=== PATIENT | female | born 1995 | race African-American/Black ===

== ENCOUNTER 2023-05-05 08:00 | Outpatient (CLI) | payer OTHER ==
[2023-05-05 16:45] LABS: BILIRUBIN,URINE NEGATIVE (NEGATIVE); GLUCOSE, URINE (UA) NEGATIVE (NEGATIVE); KETONES,URINE (UA) NEGATIVE (NEGATIVE); LEUKOCYTE ESTERASE, URINE SMALL (NEGATIVE); NITRITE,URINE NEGATIVE (NEGATIVE); OCCULT BLOOD,URINE NEGATIVE (NEGATIVE); PROTEIN,URINE NEGATIVE (NEGATIVE); UROBILINOGEN,URINE 0.2 (NORMAL) E.U./dL (NORMAL)
[2023-05-05 16:46] LABS: CLARITY,URINE CLOUDY (CLEAR)
[2023-05-05 17:11] LABS: AMORPHOUS SEDIMENT,UR Marked /LPF; BACTERIA,URINE Rare /HPF (None Seen); RBC,URINE None Seen /HPF (0-5); SQUAMOUS EPITHELIAL CELL,UR MANY Squamous (<= Few); WBC,URINE 0-3 /HPF (0-5)
== END 2023-05-05 23:59 | disposition home or self-care (01) ==
LOC: LAB.WC 08:00
PROVIDERS: ATTEND Nurse Practitioner
DX: Z34.90 Encounter for supervision of normal pregnancy, unspecified, unspecified trimester (principal)
CPT/HCPCS: 81001; 87086

== ENCOUNTER 2023-10-24 04:58 | Outpatient (CLI) | payer OTHER ==
[2023-10-24 05:24] VITALS: BP 112/86
[2023-10-24 05:48] LABS: BILIRUBIN,URINE NEGATIVE (NEGATIVE); GLUCOSE, URINE (UA) NEGATIVE (NEGATIVE); KETONES,URINE (UA) NEGATIVE (NEGATIVE); LEUKOCYTE ESTERASE, URINE SMALL (NEGATIVE); NITRITE,URINE NEGATIVE (NEGATIVE); OCCULT BLOOD,URINE SMALL (NEGATIVE); PH,URINE 7.5 PH (5.0-7.5); PROTEIN,URINE NEGATIVE (NEGATIVE); UROBILINOGEN,URINE 0.2 (NORMAL) E.U./dL (NORMAL)
[2023-10-24 06:24] LABS: AMORPHOUS SEDIMENT,UR Moderate /LPF; BACTERIA,URINE Few /HPF (None Seen); CLARITY,URINE HAZY (CLEAR); RBC,URINE 0-5 /HPF (0-5); SQUAMOUS EPITHELIAL CELL,UR RARE Squamous (<= Few); WBC,URINE 0-3 /HPF (0-5)
--- NOTE | 2023-10-24 06:49 | PROVIDER PROGRESS NOTE ---
- HPI Chief Complaint: Hyperemesis Current : Current EDU 11/27/23 Gestation 35 Weeks and 1 Days 1 Para 0 Vital Signs Temperature 98.1 F 10/24/23 05:12 Heart Rate 94 10/24/23 05:12 Respiratory Rate 17 10/24/23 05:12 Blood Pressure 112/86 H 10/24/23 05:12 - Procedures OB Procedure Performed: NST Diagnosis/Indication for NST: Decreased movement NST Procedure: NST Procedure Start Date 10/24/23 Start Time 05:10 Stop Time 05:40 Vibroacoustic Stimulation Used No Patient States Movement Yes - Plan Plan: Patient is a 27-year-old G1, P0 at 35 weeks 1 day gestation presenting today with nausea and vomiting which led to an episode of bloody emesis. This is never happened before. This was during 1 episode with retching several times. She noted specks of blood in the vomit, the blood was not throughout the emesis. She has had hyperemesis this and has continued to vomit throughout. She takes ondansetron and metoclopramide regularly. Last dose was around 10 PM. She does say she has vomiting usually early in the morning, often waking up from sleep with the taste of vomit in her mouth. Vomits once to twice per day. She also has heartburn for which she takes famotidine twice daily and tums in addition. After vomiting, she did notice some abdominal muscular pain in her epigastric area although superficial. She has good movement. She said there is a 30-minute period will be removed less than normal, but overall is reassuring. Has been moving since arrival on L&D. Denies leaking, vaginal bleeding, contractions. No dysuria. No diarrhea, fever, chills. No sick contacts. Physical Exam Constitutional: alert, no acute distress, well hydrated, well developed, well nourished, appropriate dress. Appears very relaxed and unconcerned. Cardiovascular: Regular rate and rhythm. Respiratory: no respiratory distress. Abdomen: nondistended, nontender, no guarding. Pain not reproducible on palpation. Psych: affect and mood appropriate, normal interaction, good eye contact. FHT: 145 beats per baseline, moderate variability, accelerations present, no decelerations. [place]: 2 to 5 minutes SVE: Declined 27-year-old G1, P0 at 35 weeks gestation with nausea and vomiting of 1. Nausea and vomiting of -One episode of blood specks in vomit, likely not a huge concern. Getting nausea and vomiting under better control would be ideal, although less likely given her history of vomiting throughout . She is currently stable an calm. Vitals normal. -Can continue to try scheduling antiemetics at different times. -Advised to get GERD under better control as this may be worsening nausea and vomiting as well as being irritating by itself. -Discussed warning signs of increasing pain, frequency of vomiting. Discussed that specks of blood are less worrisome than large amounts of blood or completely saturated emesis. If she has more episodes of blood, should be reevaluated and return to emergency room if becomes large-volume blood. 2. 35 weeks gestation -Has appointment on Friday with her primary OB provider. 3. GERD -Consider switching to omeprazole if famotidine not working. May help with her nighttime vomiting. 4. Hematuria -Asymptomatic. -UA performed with culture indicated. Will follow-up by phone with culture results. 5. Contractions -Declined cervical exam as she is not feeling contractions 6. Decreased movement -Short episode of decreased movement of 30 minutes is not worrisome. Regardless she had a reactive NST that is very reassuring.
== END 2023-10-24 06:40 | disposition home or self-care (01) ==
LOC: WFO 04:58 → FBP 05:01 → WFO 06:40
PROVIDERS: ATTEND Obstetrics & Gynecology
DX: O36.8130 Decreased fetal movements, third trimester, not applicable or unspecified (principal); O99.891 Other specified diseases and conditions complicating pregnancy; R31.9 Hematuria, unspecified; O21.2 Late vomiting of pregnancy; Z3A.35 35 weeks gestation of pregnancy; O99.613 Diseases of the digestive system complicating pregnancy, third trimester; K21.9 Gastro-esophageal reflux disease without esophagitis
CPT/HCPCS: 59025; 81001; 87086; 99213

== ENCOUNTER 2024-03-06 10:28 | Outpatient (CLI) | payer OTHER ==
--- NOTE | 2024-03-07 10:00 | XRAY Report ---
PROCEDURE: Hand 3+V RT INDICATIONS: GANGLION CYST TECHNIQUE: 3 views of the hand(s) acquired. COMPARISON: None. FINDINGS: Bones: No fractures or dislocations. No suspicious bony lesions. Soft tissues: No suspicious soft tissue calcifications or masses. IMPRESSION: No radiographic abnormality. Reviewed by: Iván Collado MD on 03/07/2024 9:59 AM PDT Approved by: Iván Collado MD on 03/07/2024 9:59 AM PDT Station ID: [id number]
== END 2024-03-06 10:29 | disposition home or self-care (01) ==
LOC: DI 10:28
PROVIDERS: ATTEND Physician Assistant Surgical
DX: M67.441 Ganglion, right hand (principal)

== ENCOUNTER 2024-04-21 08:38 | Emergency (ER) | payer OTHER ==
[2024-04-21 09:02] VITALS: BP 137/93; O2SAT 99
--- NOTE | 2024-04-21 09:28 | XRAY Report ---
PROCEDURE: Wrist 3+V LT INDICATIONS: injury/pain TECHNIQUE: 4 views of the wrist were acquired. COMPARISON: None. FINDINGS: Bones: No fractures or dislocations. No suspicious bony lesions. Soft tissues: No suspicious soft tissue calcifications or masses. IMPRESSION: No acute bony abnormality. Reviewed by: Fernando Zhang MD on 04/21/2024 9:27 AM PDT Approved by: Fernando Zhang MD on 04/21/2024 9:27 AM PDT Station ID: [id number]
--- NOTE | 2024-04-21 09:46 | ED Physician Documentation ---
History of Present Illness - Stated complaint Stated Complaint: LT WRIST PX - Chief complaint Chief Complaint: Ext Problem - History obtained from History obtained from: Patient - Additonal information Additional information: The patient comes to the emergency department chief complaint of atraumatic left wrist pain that started yesterday. She has had a slight bit of swelling over the dorsum of her left wrist but no other deformity or edema. She has full range of motion of the wrist despite the pain, she states, though it does hurt when she flexes or extends to the extreme. She has a 5-month-old infant that she does hold. No history of joint problems. She does have a ganglion cyst on her right wrist dorsum. No other complaints at this time. PD PAST MEDICAL HISTORY - Past Medical History Past Medical History: Yes Cardiovascular: None Respiratory: None Endocrine/Autoimmune: None AWNING HANGER: None - Past Surgical History Past Surgical History: No - Present Medications Home Medications: Ambulatory Orders Medication Instructions Recorded Confirmed Doxylamine Succinate [Unisom Sleep 25 mg PO Q8H PRN #30 tablet 04/21/23 Aid] Famotidine [Pepcid] 20 mg PO DAILY #20 tablet 04/21/23 Ondansetron Odt [Zofran] 4 mg TL Q6H PRN #30 tablet 04/21/23 Pyridoxine HCl (Vitamin B6) 25 mg PO BID #40 tablet 04/21/23 [Vitamin B-6] dexAMETHasone [Decadron] 4 mg PO DAILY #5 tablet 04/21/23 - Allergies Allergies/Adverse Reactions: Allergies Allergy/AdvReac Type Severity Reaction Status Date / Time No Known Drug Allergies Allergy Verified 04/21/24 08:54 - Social History Does the pt smoke?: No Smoking Status: Never smoker Does the pt drink ETOH?: Yes Does the pt have substance abuse?: No - Immunizations Immunizations are current?: Yes - POLST Patient has POLST: No PD ED PE NORMAL - Vitals Vital signs reviewed: Yes - General General: Alert and oriented X 3, No acute distress, Well developed/nourished - HEENT HEENT: Atraumatic, EOMI, Moist mucous membranes - Neck Neck: Supple, no meningeal sign - Cardiac Cardiac: Strong equal pulses - Respiratory Respiratory: No respiratory distress - Derm Derm: Normal color, Warm and dry, No rash - Extremities Extremities: No deformity, Normal ROM s pain, Other (Minimal edema left wrist dorsum. No cyst or other abnormal structure palpable.) - Neuro Neuro: No motor deficit, No sensory deficit - Psych Psych: Normal mood, Normal affect Results - Vitals Vitals: Vital Signs - 24 hr 04/21/24 08:49 Temperature 36.4 C L Heart Rate 104 H Respiratory 20 Rate Blood Pressure 137/93 H O2 Saturation 99 Oxygen O2 Source Room air - Rads (name of study) Left wrist x-ray series Relevant Findings:: Final report received, See rad report (Negative) PD Medical Decision Making - ED course Complexity details: reviewed results, re-evaluated patient, considered differential, d/w patient ED course: I discussed with the patient that I am not sure what is causing her left wrist pain but there is no evidence of an acute trauma and her x-ray is negative. We have discussed home management of the symptoms, the likelihood of self-limited symptomatology, and the usual indications for return. Departure - Departure Disposition: 01 Home, Self Care Clinical Impression: Wrist pain, left Condition: Stable Instructions: ED Sprain Wrist Comments: There is no evidence of an acute trauma that would cause you to have wrist pain. Most likely, you have an overuse inflammation, either from repetitive movement or repetitive positioning under stress. There is no palpable cyst at this time but you may develop 1 in the area in time. I have given you "wrist sprain" instructions, because we do not have generic wrist pain instructions and also, some of the pointers for using the wrist as it goes through the healing process are relevant even to your situation. You may use ice and heat and also, ibuprofen and Tylenol. Please follow-up your primary doctor if you are not feeling any better in the next couple of weeks.
== END 2024-04-21 09:59 | disposition home or self-care (01) ==
LOC: ED 08:38
DX: M25.532 Pain in left wrist (principal)
CPT/HCPCS: 99283